=== PATIENT | female | born 1945 | race Caucasian/White ===

== ENCOUNTER → 2016-12-25 | Outpatient (CLI) | payer MEDICARE, BC ==
[~2016-12-25] MED LIST: CALCIUM; OXYC-12
--- NOTE | 2016-12-26 12:54 | Diagnostic Imaging Report ---
Thyroid scan and uptake. TECHNIQUE: After the oral administration of 201 ?Ci of I-123 capsule, 4-hour and 24-hour uptake is measured and plantar images over the thyroid gland obtained. INDICATION: Multiple thyroid nodules FINDINGS: Thyroid uptake at 4 hours is 20 %, and at 24 hours is 47 %. There is decreased uptake in the lower pole of the right thyroid lobe which corresponds to a dominant nodule measuring 3.2 cm seen on ultrasound. IMPRESSION: 1. Mild hyperthyroidism. 2. Cold nodule in the lower right thyroid lobe corresponding to a 3.2-cm mass seen on ultrasound of 10/26/2016. Tissue diagnosis is suggested. Report was faxed to office of Dr. Eric Mak @ 12:53 PM/nury. Dictated by: Dictated on workstation # [id number]
== END ==
LOC: CARD 10:51
PROVIDERS: ATTEND Otolaryngology Otolaryngology/Facial Plastic Surgery
DX: E04.1 Nontoxic single thyroid nodule (principal); E05.90 Thyrotoxicosis, unspecified without thyrotoxic crisis or storm
CPT/HCPCS: 78014

== ENCOUNTER → 2017-01-25 | Outpatient (CLI) | payer MEDICARE, BC ==
[~2017-01-25] VITALS: Ht 157.5 cm; Wt 63.5 kg
[2017-01-25 11:12] VITALS: BP 138/87
[2017-01-25 11:30] VITALS: BP 128/67
--- NOTE | 2017-01-25 11:38 | Progress Note-Pre Operative ---
Pre-Operative Progress Note H&P Reviewed The H&P was reviewed, patient examined and no changes noted. Date H&P Reviewed: Jan 25, 2017 Time H&P Reviewed: 11:15 Pre-Operative Diagnosis: Right Thyroid Nodule MISHEL DAVIES MD Jan 25, 2017 11:38 am
--- NOTE | 2017-01-25 11:41 | Progress Note-Post Operative ---
Post-Operative Progess Note Surgeon (s)/Single Pass Soil Stabilizer Operator (s) Surgeon MISHEL DAVIES MD Single Pass Soil Stabilizer Operator: n/a Pre-Operative Diagnosis Right Thyroid Nodule Post-Operative Diagnosis same Post-Op Procedure Note Date of Procedure: Jan 25, 2017 Name of Procedure Performed: US Guided FNA of Right Thyroid Nodule Description of the Procedure: n/a Findings of the Procedure n/a Anesthesia Type local Estimated blood loss (mL): minimal Packing: n/a Specimen(s) collected/removed slides and cytology to pathology MISHEL DAVIES MD Jan 25, 2017 11:41 am
--- NOTE | 2017-01-25 11:49 | Diagnostic Imaging Report ---
EXAMINATION: Dedicated thyroid ultrasound performed with ultrasound guidance provided for FNA performed by Dr. Mak. Indication: Thyroid nodule FINDINGS: Ultrasound images demonstrate a right thyroid nodule. IMPRESSION: Ultrasound guidance provided for right thyroid nodule FNA. Dictated by: Dictated on workstation # [id number]
== END ==
LOC: RAD 11:06
PROVIDERS: ATTEND Otolaryngology Otolaryngology/Facial Plastic Surgery
DX: E04.1 Nontoxic single thyroid nodule (principal)
CPT/HCPCS: 76942; 88305

== ENCOUNTER → 2017-06-20 | Outpatient (CLI) | payer MEDICARE, BC ==
--- NOTE | 2017-06-20 18:10 | Diagnostic Imaging Report ---
PROCEDURE: US Thyroid. TECHNIQUE: Multiple real-time grayscale images were obtained of the thyroid in various projections. INDICATION: Thyroid nodule. FINDINGS: The thyroid ultrasound exam performed on 10/26/2016 noted multiple nodules involving both lobes of the thyroid. This included a 3.2 x 1.6 x 2.6 cm complex nodule in the inferior pole of the right lobe. The I-123 thyroid uptake exam of 12/26/2016 indicated this was a cold nodule, however. The patient subsequently underwent an ultrasound-guided biopsy of the nodule on 01/25/2017. The results of the biopsy are not known to me. On this study, the multiple nodules within the thyroid gland seen previously are again evident and do not appear to have changed significantly. Specifically, the nodule in the inferior portion of the right lobe seems stable and measures 3.2 x 2.6 x 1.6 cm. The thyroid gland itself is prominent with the right lobe measuring 5.2 x 2.2 x 2.3 cm and the left lobe is estimated to be 4 x 1.5 x 1.3 cm (normal gland size 4-5 x 2 x 2 cm or less). IMPRESSION: When compared to the previous study, there does not appear to have been any significant change in the appearance of the thyroid gland. The gland is prominent, and there are multiple nodules involving both lobes. This appearance does suggest a multinodular goiter. Correlation with the patient's surgical biopsy results regarding the nodule in the inferior pole of the right lobe would be recommended. Dictated by: Dictated on workstation # [id number]
== END ==
LOC: RAD 12:51
PROVIDERS: ATTEND Otolaryngology Otolaryngology/Facial Plastic Surgery
DX: E04.2 Nontoxic multinodular goiter (principal)
CPT/HCPCS: 76536

== ENCOUNTER → 2018-04-03 | Outpatient (CLI) | payer MEDICARE, BC ==
--- NOTE | 2018-04-03 15:50 | Diagnostic Imaging Report ---
PROCEDURE: US Thyroid. TECHNIQUE: Multiple real-time grayscale images were obtained of the thyroid in various projections. INDICATION: Right thyroid nodule. The previous thyroid ultrasound exam on 10/26/2016 noted multiple bilateral thyroid nodules including a 3.2 x 1.6 x 2.6 cm complex nodule in the inferior pole of the right lobe of the thyroid. The I-123 nuclear medicine thyroid scan performed on 12/26/2016 indicated that this is a cold nodule. The patient did undergo an ultrasound-guided biopsy of this lesion on 01/25/2017. The results of that biopsy however are not known to me. The subsequent thyroid ultrasound exam of 06/20/2017 suggests that the nodule in the inferior pole of the right lobe of the thyroid was stable. The other nodules in both lobes seen previously also appeared unchanged. On this study, the overall appearance of the thyroid gland does not appear to have changed significantly. The nodule in the inferior pole of the right lobe seen in the previous study now measures 3.2 x 1.5 x 2.3 cm. The other nodules in both lobes are essentially no different with the exception of the 1.7 x 1.9 x 1.1 cm nodule in the isthmus. That nodule now measures 2.0 x 1.9 x 1.1 cm. I still suspect that this is most likely a benign process. The right lobe of the thyroid measures 5.8 x 2.3 x 2.2 cm. The left lobe is estimated to be 5.3 x 1.8 x 1.4 cm (normal gland size 4-5 x 2 x 2 cm or less). IMPRESSION: 1. The thyroid gland is enlarged and there are multiple nodules in both lobes. This appearance is most likely due to a multinodular goiter. 2. The complex solid nodule in the inferior pole of the right lobe seen in the previous studies appears stable as well. Correlation with the patient's biopsy results would be recommended. 3. If further evaluation is desired, a six-month followup ultrasound exam should be obtained. Dictated by: Dictated on workstation # [id number]
== END ==
LOC: RAD 11:08
PROVIDERS: ATTEND Otolaryngology Otolaryngology/Facial Plastic Surgery
DX: E04.2 Nontoxic multinodular goiter (principal)
CPT/HCPCS: 76536

== ENCOUNTER → 2018-09-11 | Outpatient (CLI) | payer MEDICARE, BC ==
--- NOTE | 2018-09-11 12:36 | Diagnostic Imaging Report ---
INDICATION: Routine screening. Comparison is made with prior mammogram from 09/03/2017 and 08/16/2016. 2-D and 3-D bilateral screening mammography was performed with CAD. Both breasts are heterogeneously dense, limiting the sensitivity of mammography. The parenchymal pattern is stable. No mass or malignant-appearing micro-calcifications are seen. The axilla are unremarkable. IMPRESSION: BI-RADS category one No mammographic features suspicious for malignancy are identified. ACR BI-RADS Category 1: Negative. Result letter will be mailed to the patient. Note: At least 10% of breast cancer is not imaged by mammography. Dictated by: Dictated on workstation # [id number]
== END ==
LOC: RAD 10:19
PROVIDERS: ATTEND Obstetrics & Gynecology
DX: Z12.31 Encounter for screening mammogram for malignant neoplasm of breast (principal)
CPT/HCPCS: 77067

== ENCOUNTER → 2019-03-30 | Outpatient (CLI) | payer MEDICARE, BC ==
--- NOTE | 2019-03-30 14:22 | Diagnostic Imaging Report ---
PROCEDURE: US Thyroid. TECHNIQUE: Multiple real-time grayscale images were obtained of the thyroid in various projections. INDICATION: Thyroid nodule. COMPARISON: Correlation is made with thyroid ultrasound from 04/03/2018. FINDINGS: Right lobe of the thyroid measures 5.0 x 1.9 x 2.0 cm and the left lobe measures 5.1 x 2.2 x 1.4 cm. Multiple bilateral thyroid masses are again noted. Dominant mass in the lower pole right lobe measures 3.3 x 1.9 x 1.9 cm. This is similar to prior exam. Nodule in the upper pole measures 1.1 x 0.9 1.0 cm, stable. Nodule in the isthmus measures 2.1 x 1.4 x 2.0 cm compared with 2.0 x 1.1 x 1.9 cm. Left lower pole nodule is 1.4 x 1.1 x 1.3 cm, slightly smaller than prior exam. Upper pole left lobe nodule measures 1.4 x 0.9 x 1.0 cm, stable. IMPRESSION: Overall stable multinodular thyroid when compared with examination one year earlier. Dictated by: Dictated on workstation # [id number]
== END ==
LOC: RAD 12:10
PROVIDERS: ATTEND Otolaryngology Otolaryngology/Facial Plastic Surgery
DX: E04.2 Nontoxic multinodular goiter (principal)
CPT/HCPCS: 76536

== ENCOUNTER → 2019-11-30 | Outpatient (CLI) | payer MEDICARE, BC ==
--- NOTE | 2019-11-30 12:13 | Diagnostic Imaging Report ---
INDICATION: Routine screening. COMPARISON: 09/11/2018 and 09/03/2017. TECHNIQUE: 2D and 3D bilateral screening mammography was performed with CAD. FINDINGS: Both breasts are heterogeneously dense, limiting the sensitivity of mammography. The parenchymal pattern is stable. No mass or malignant appearing microcalcifications are seen. There are benign calcifications in the left breast. The axillae are unremarkable. IMPRESSION: No mammographic features suspicious for malignancy are identified. ACR BI-RADS Category 2: Benign findings. Result letter will be mailed to the patient. Note: At least 10% of breast cancer is not imaged by mammography. Dictated by: Dictated on workstation # [id number]
== END ==
LOC: RAD 09:10
PROVIDERS: ATTEND Obstetrics & Gynecology
DX: Z12.31 Encounter for screening mammogram for malignant neoplasm of breast (principal)
CPT/HCPCS: 77067

== ENCOUNTER → 2020-05-25 | Outpatient (CLI) | payer MEDICARE, BC ==
--- NOTE | 2020-05-25 10:34 | Diagnostic Imaging Report ---
PROCEDURE: US Thyroid. TECHNIQUE: Multiple Real-time grayscale images were obtained of the thyroid in various projections. INDICATION: Bilateral thyroid nodules. FINDINGS: The previous thyroid ultrasound exam of 03/30/2019 revealed multiple nodules in both lobes of the thyroid. These findings did seem similar to the prior exam of 04/03/2018. On this exam, there are again nodules in both lobes of the thyroid. The largest nodule in the right lobe is along the inferior pole and measures 3.5 x 1.5 x 2.6 cm. On the prior exam, this nodule measured 3.3 x 1.9 x 1.9 cm. The complex nodule in the isthmus seen on the prior exam measuring 2.1 x 1.4 x 2.0 cm is again visualized and is now estimated to be 2.5 x 1.4 x 2.5 cm. The largest nodule in the left lobe located in the inferior pole now measures 2.0 x 1.2 x 1.7 cm as opposed to 1.4 x 1.1 x 1.3 cm previously. No new nodule has developed. The thyroid gland itself remains enlarged with the right lobe measuring 5.6 x 1.6 x 2.2 cm while the left lobe is estimated at 5.2 x 1.5 x 1.4 cm (normal gland size 4-5 x 2.2 cm or less). IMPRESSION: The thyroid gland is enlarged and there are multiple nodules in both lobes. The nodules in the isthmus and in the inferior pole of the left lobe do measure somewhat greater than on the prior exam. I suspect that these nodules are benign but I would recommend that a short-term (6 month) followup thyroid ultrasound exam be obtained for further evaluation. Dictated by: Dictated on workstation # [id number]
== END ==
LOC: RAD 08:22
PROVIDERS: ATTEND Otolaryngology Otolaryngology/Facial Plastic Surgery
DX: E04.2 Nontoxic multinodular goiter (principal); E07.89 Other specified disorders of thyroid
CPT/HCPCS: 76536

== ENCOUNTER → 2021-04-18 | Outpatient (CLI) | payer MEDICARE, BC ==
--- NOTE | 2021-04-18 13:41 | Diagnostic Imaging Report ---
INDICATION: Right hip pain COMPARISON: None. FINDINGS: 2 views of the right hip were obtained and show no fractures, dislocations, or other acute bony abnormalities. Joint spaces are well maintained throughout. The soft tissues appear unremarkable. No radiopaque foreign bodies are identified. IMPRESSION: Unremarkable radiographic exam of the right hip. Dictated by: Dictated on workstation # [id number]
== END ==
LOC: RAD 12:58
PROVIDERS: ATTEND Internal Medicine
DX: M25.551 Pain in right hip (principal)
CPT/HCPCS: 73502

== ENCOUNTER → 2021-05-09 | Outpatient (CLI) | payer MEDICARE, BC ==
--- NOTE | 2021-05-09 14:05 | Diagnostic Imaging Report ---
INDICATION: Postmenopausal state. COMPARISON: 06/19/2004. FINDINGS: AP Spine L1-L4: [BMD (g/cm2): 0.858] [T-Score: -2.8] [Z-Score: -0.9] [BMD Previous: 0.954] [BMD % Change: -10.1] LT Hip Neck: [BMD (g/cm2): 0.676] [T-Score: -2.6] [Z-Score: -0.6] LT Hip Total: [BMD (g/cm2):0.714] [T-Score:-2.3] [Z-Score: -0.5] [BMD Previous: 0.731] [BMD % Change: -2.3] RT Hip Neck: [BMD (g/cm2):0.644] [T-Score:-2.8] [Z-Score:-0.8] RT Hip Total: [BMD (g/cm2):0.667] [T-score:-2.7] [Z-Score:-0.9] [BMD Previous:0.709] [BMD % Change:-5.9] *Indicates significant change from prior examination based on 95% confidence level. World Health Organization criteria for BMD interpretation classify patients as Normal (T-score at or above -1.0), Osteopenic (T-score between -1.0 and -2.5) or Osteoporotic (T-score at or below -2.5). LIMITATIONS AND MODIFICATION: None. FRACTURE RISK (FRAX SCORE): The ten year probability of (%): Major Osteoporotic Fracture: [27.9] Hip Fracture: [9.8] IMPRESSION: 1. Osteoporosis. 2. No significant change in bone mineral density since prior examination. 3. See below National Osteoporosis Foundation guidelines on when to potentially initiate pharmacologic therapy. Based on the National Osteoporosis Foundation Guidelines, pharmacologic treatment should be initiated in any of the following, unless clinical conditions suggest otherwise: * Any patient with prior fragility fracture of the hip or vertebrae. A spine fracture indicates 5X risk for subsequent spine fracture and 2X risk for subsequent hip fracture. * Osteoporosis (T-score <-2.5). * Postmenopausal women and men age 50 and older with low bone mass/osteopenia (T-score between -1.0 and -2.5) by DXA and 10-year major osteoporotic fracture greater than 20% or a 10-year probability of hip fracture greater than 3%. These fracture risks are supplied above in the FRAX score, if applicable. * Clinician judgement and/or patient preferences may indicate treatment for people with 10-year fracture probabilities above or below these levels. Dictated by: Dictated on workstation # [id number]
== END ==
LOC: RAD 12:07
PROVIDERS: ATTEND Internal Medicine
DX: M81.0 Age-related osteoporosis without current pathological fracture (principal); Z78.0 Asymptomatic menopausal state
CPT/HCPCS: 77080

== ENCOUNTER → 2021-05-09 | Outpatient (CLI) | payer MEDICARE, BC ==
--- NOTE | 2021-05-09 14:23 | Diagnostic Imaging Report ---
PROCEDURE: US Thyroid. TECHNIQUE: Multiple Real-time grayscale images were obtained of the thyroid in various projections. INDICATION: Multinodular goiter. COMPARISON: 05/25/2020 thyroid ultrasound. FINDINGS: The right lobe measures 5.6 x 2.3 x 1.7 cm. The largest nodule along the inferior pole measures 3.5 x 1.5 x 2.4 cm. This is well-circumscribed with a heterogeneous appearance from anechoic to predominately isoechoic. There is a hypoechoic nodule in the upper pole which is well-circumscribed measuring 1.2 x 1 x 0.7 cm. No associated calcifications are seen. The isthmus shows a single solid nodule which is heterogeneous from anechoic to hyperechoic. This measures 2.1 x 1 x 2.4 cm. The left lobe measures 5.2 x 1.5 x 1.2 cm. There are two large nodules, both of which are heterogeneous with anechoic to solid isoechoic appearance. The largest is inferior measuring 1.9 x 1.8 x 1.2 cm. One in the upper pole measures 1.7 x 1 x 0.8 cm. All nodules are wider than tall. No calcifications are seen. IMPRESSION: Multinodular appearance as described. The overall findings are relatively stable when compared with the previous year's exam. TI-RADS 3 Dictated by: Dictated on workstation # [id number]
== END ==
LOC: RAD 12:09
PROVIDERS: ATTEND Otolaryngology Otolaryngology/Facial Plastic Surgery
DX: E04.2 Nontoxic multinodular goiter (principal)
CPT/HCPCS: 76536

== ENCOUNTER → 2021-07-13 | Outpatient (CLI) | payer MEDICARE, BC ==
--- NOTE | 2021-07-13 13:25 | Diagnostic Imaging Report ---
Indication: Routine screening. Comparison is made with prior mammogram from 11/30/2019 and 09/11/2018. 2-D and 3-D bilateral screening mammography was performed with CAD. Both breast are heterogeneously dense, limiting the sensitivity of mammography. The parenchymal pattern is stable. No mass or malignant-appearing microcalcifications are seen. Axillae are unremarkable. IMPRESSION: BI-RADS Category 1 No mammographic features suspicious for malignancy are identified. ACR BI-RADS Category 1: Negative. Result letter will be mailed to the patient. Note: At least 10% of breast cancer is not imaged by mammography. Dictated by: Dictated on workstation # [id number]
== END ==
LOC: RAD 10:15
PROVIDERS: ATTEND Obstetrics & Gynecology
DX: Z12.31 Encounter for screening mammogram for malignant neoplasm of breast (principal)
CPT/HCPCS: 77063; 77067

== ENCOUNTER 2021-09-26 05:34 | Outpatient (CLI) | payer MEDICARE, BC ==
[~2021-09-26] VITALS: Ht 157.5 cm; Wt 58.2 kg
[2021-09-26] MEDS ORDERED: GLUC-235 PO (15:22)
[2021-09-26] MEDS ORDERED: LEVO2.5S7 PO (15:26)
[2021-09-26] MEDS ORDERED: GLUC1TAB20 PO (15:27)
== END 2021-09-26 15:42 | disposition home or self-care (01) ==
LOC: PREOP 05:34
PROVIDERS: ATTEND Specialist
DX: Z01.818 Encounter for other preprocedural examination (principal)

== ENCOUNTER 2021-09-29 09:56 | Day surgery (SDC) | payer MEDICARE, BC ==
[~2021-09-29] VITALS: Ht 157.5 cm; Wt 58.2 kg
[~2021-09-29 09:56] MED LIST changes: +GLUC-235 PO; +GLUC1TAB20 PO; +LEVO2.5S7 PO
[2021-09-29] MEDS: TETRACAINE 0.5% OPHTH SOLN 4 ML BTL (SINGLE DOSE ONLY) OU PRN ×3 (10:09→10:19)
[2021-09-29 10:12] VITALS: BP 145/83
[2021-09-29] MEDS: PHENYLEPHRINE 10% OPHTH (NEO-SYN) 5 ML BTL OU SCH ×2 (10:14→10:19)
[2021-09-29] MEDS: TROPICAMIDE 1% OPH SOLN (MYDRIACYL) 15 ML BTL OP SCH ×2 (10:14→10:19)
[2021-09-29] MEDS ORDERED: LIDOCAINE PF 1% 2 ML VIAL IR PRN (10:15)
[2021-09-29] MEDS ORDERED: POVIDONE (BETADINE) OPHTH SOLN 5% 30 ML OP ONE (10:15)
[2021-09-29] MEDS ORDERED: TIMOLOL MALEATE 0.5% 5 ML (TIMOPTIC) BTL OU PRN (10:15)
[2021-09-29] MEDS ORDERED: MOXIFLOXACIN OPHTH SOLN 5 MG/ML 0.3 ML SYRINGE OP ONE (10:15)
--- NOTE | 2021-09-29 10:22 | Ophthalmologist Pre-Op Note ---
Pre-Operative Progress Note H&P Reviewed The H&P was reviewed, patient examined and no changes noted. Date H&P Reviewed: Sep 29, 2021 Time H&P Reviewed: 10:22 Pre-Op Dx Cataract, Right Eye DORIS SONG MD Sep 29, 2021 10:22
[2021-09-29] MEDS ORDERED: MIDAZOLAM 2 MG/2 ML (VERSED) VIAL ONE (10:30)
--- NOTE | 2021-09-29 10:44 | Ophthalmology Operative Report ---
Cataract removal/placement IOL PREOPERATIVE DIAGNOSIS: Cataract Right Eye POSTOPERATIVE DIAGNOSIS: Cataract Right Eye PROCEDURE: Cataract removal and placement of posterior chamber implant, right eye SURGEON: Josef Song ANESTHESIA: Topical with sedation COMPLICATIONS: None ESTIMATED BLOOD LOSS: Minimal DESCRIPTION OF PROCEDURE: After proper informed consent was obtained, the patient, a 76 female, was taken to the Operating Room and the right eye was anesthetized with tetracaine. The right eye was then prepped and draped in the usual manner. A wire lid speculum was placed. A paracentesis was made at the left hand position. Preservative free lidocaine was injected into the anterior chamber followed by viscoelastic. A clear corneal incision was made in the temporal position. A capsulorrhexis was preformed and the central nuclear and cortical material were removed. The posterior capsule was polished and Branden 19.0 AU00T0 IOL was placed into the capsular bag. The residual viscoelastic was aspirated and balanced saline solution was injected into the anterior chamber. Moxifloxacin was injected into the anterior chamber. The wound was checked and found to be water tight. The patient tolerated the procedure well without complications. JOSEF SONG MD Sep 29, 2021 10:44
[2021-09-29 10:52] VITALS: BP 126/66
[2021-09-29] MEDS ORDERED: acetaZOLAMIDE ER 500 MG CAP (DIAMOX SEQUELS) PO ONE (11:30)
--- NOTE | 2021-09-29 12:40 | Anesthesia-General Post-Op ---
MAC Patient Condition Mental Status/LOC: Same as Preop Cardiovascular: Satisfactory Nausea/Vomiting: Absent Respiratory: Satisfactory Pain: Controlled Complications: Absent Post Op Complications Complications None Follow Up Care/Instructions Patient Instructions None needed. Anesthesiology Discharge Order Discharge Order Patient is doing well, no complaints, stable vital signs, no apparent adverse anesthesia problems. No complications reported per nursing. RAFAT RODRIGUEZ CRNA Sep 29, 2021 12:40
== END 2021-09-29 10:56 ==
LOC: SDC 09:56
PROVIDERS: ATTEND Specialist
DX: H25.11 Age-related nuclear cataract, right eye (principal); J45.909 Unspecified asthma, uncomplicated; E03.9 Hypothyroidism, unspecified; M81.0 Age-related osteoporosis without current pathological fracture; Z90.710 Acquired absence of both cervix and uterus; Z85.828 Personal history of other malignant neoplasm of skin; Z80.9 Family history of malignant neoplasm, unspecified
CPT/HCPCS: 66984; V2632

== ENCOUNTER 2021-10-13 09:59 | Day surgery (SDC) | payer MEDICARE, BC ==
[~2021-10-13] VITALS: Ht 157.5 cm; Wt 58.2 kg
[2021-10-13] MEDS ORDERED: POVIDONE (BETADINE) OPHTH SOLN 5% 30 ML OP ONE (10:00)
[2021-10-13] MEDS ORDERED: MOXIFLOXACIN OPHTH SOLN 5 MG/ML 0.3 ML SYRINGE OP ONE (10:00)
[2021-10-13] MEDS ORDERED: TIMOLOL MALEATE 0.5% 5 ML (TIMOPTIC) BTL OU PRN (10:00)
[2021-10-13] MEDS ORDERED: LIDOCAINE PF 1% 2 ML VIAL IR PRN (10:00)
[2021-10-13] MEDS: TETRACAINE 0.5% OPHTH SOLN 4 ML BTL (SINGLE DOSE ONLY) OU PRN ×4 (10:08→10:25)
[2021-10-13] MEDS: PHENYLEPHRINE 10% OPHTH (NEO-SYN) 5 ML BTL OU SCH ×3 (10:15→10:25)
[2021-10-13] MEDS: TROPICAMIDE 1% OPH SOLN (MYDRIACYL) 15 ML BTL OP SCH ×3 (10:15→10:25)
[2021-10-13 10:18] VITALS: BP 164/74
[2021-10-13] MEDS ORDERED: MIDAZOLAM 2 MG/2 ML (VERSED) VIAL ONE (10:51)
[2021-10-13] MEDS ORDERED: acetaZOLAMIDE ER 500 MG CAP (DIAMOX SEQUELS) PO ONE (11:00)
--- NOTE | 2021-10-13 11:05 | Ophthalmologist Pre-Op Note ---
Pre-Operative Progress Note H&P Reviewed The H&P was reviewed, patient examined and no changes noted. Date H&P Reviewed: Oct 13, 2021 Time H&P Reviewed: 11:05 Pre-Op Dx Cataract, Left Eye DORIS SONG MD Oct 13, 2021 11:05
--- NOTE | 2021-10-13 11:31 | Ophthalmology Operative Report ---
Cataract removal/placement IOL PREOPERATIVE DIAGNOSIS: Cataract Left Eye POSTOPERATIVE DIAGNOSIS: Cataract Left Eye PROCEDURE: Cataract removal and placement of posterior chamber implant, left eye SURGEON: Josef Song ANESTHESIA: Topical with sedation COMPLICATIONS: None ESTIMATED BLOOD LOSS: Minimal DESCRIPTION OF PROCEDURE: After proper informed consent was obtained, the patient, a 76 female, was taken to the Operating Room and the left eye was anesthetized with tetracaine. The left eye was then prepped and draped in the usual manner. A wire lid speculum was placed. A paracentesis was made at the left hand position. Preservative free lidocaine was injected into the anterior chamber followed by viscoelastic. A clear corneal incision was made in the temporal position. A capsulorrhexis was preformed and the central nuclear and cortical material were removed. The posterior capsule was polished and an Branden 18.5 AU00T0 was placed into the capsular bag. The residual viscoelastic was aspirated and balanced saline solution was injected into the anterior chamber. Moxifloxacin was injected into the anterior chamber. The wound was checked and found to be water tight. The patient tolerated the procedure well without complications. JOSEF SONG MD Oct 13, 2021 11:31
[2021-10-13 11:35] VITALS: BP 142/63
--- NOTE | 2021-10-13 13:13 | Anesthesia-General Post-Op ---
MAC Patient Condition Mental Status/LOC: Same as Preop Cardiovascular: Satisfactory Nausea/Vomiting: Absent Respiratory: Satisfactory Pain: Controlled Complications: Absent Post Op Complications Complications None Follow Up Care/Instructions Patient Instructions None needed. Anesthesiology Discharge Order Discharge Order Patient is doing well, no complaints, stable vital signs, no apparent adverse anesthesia problems. No complications reported per nursing. INGE KRAUSE CRNA Oct 13, 2021 13:12
== END 2021-10-13 11:37 ==
LOC: SDC 09:59
PROVIDERS: ATTEND Specialist
DX: H25.12 Age-related nuclear cataract, left eye (principal); J45.909 Unspecified asthma, uncomplicated; E03.9 Hypothyroidism, unspecified
CPT/HCPCS: 66984; V2632

== ENCOUNTER → 2022-05-09 | Outpatient (CLI) | payer MEDICARE, BC ==
[~2022-05-09] MED LIST changes: -GLUC1TAB20 PO; +GLUC1TAB21 PO
--- NOTE | 2022-05-09 14:20 | Diagnostic Imaging Report ---
PROCEDURE: US Thyroid. TECHNIQUE: Multiple real-time grayscale images were obtained of the thyroid in various projections. INDICATION: Multinodular goiter, follow-up. COMPARISON: Correlation is made with prior thyroid ultrasound from 05/09/2021. FINDINGS: Right lobe of the thyroid measures 5.3 x 1.9 x 2.1 cm, and the left lobe measures 5.3 x 1.7 x 1.4 cm. Isthmus is 5 mm in thickness. Bilateral thyroid nodules are again noted. Mixed solid and cystic dominant nodule in the lower pole of the right lobe measures 3.9 x 1.7 x 3.1 cm compared with 3.5 x 1.5 x 2.4 cm. The solid nodule in the upper pole of the right lobe measures 1.2 x 0.8 x 1.1 cm, stable. Solid isoechoic nodule in the upper pole of the left lobe measures 1.6 x 0.8 x 0.9 cm, stable. Dominant nodule in the lower pole of the left lobe measures 3.0 x 1.4 x 2.2 cm. This also appears similar to prior exam. Isthmus nodule measures 2.7 x 1.4 x 2.4 cm, similar to prior. No new masses are seen. IMPRESSION: Multinodular thyroid with multiple bilateral and isthmic solid nodules. The dominant nodule in the lower pole of the right lobe does show some increase in size in transverse dimension when compared with prior exam. Consideration could be given to performance of fine-needle aspiration. All other nodules appear to be fairly stable. Dictated by: Dictated on workstation # [id number]
== END ==
LOC: RAD 10:11
PROVIDERS: ATTEND Otolaryngology Otolaryngology/Facial Plastic Surgery
DX: E04.2 Nontoxic multinodular goiter (principal)
CPT/HCPCS: 76536

== ENCOUNTER → 2022-07-16 | Outpatient (CLI) | payer MEDICARE, BC ==
--- NOTE | 2022-07-16 14:30 | Diagnostic Imaging Report ---
INDICATION: Routine screening. Comparison is made with prior mammogram 07/13/2021 and 11/30/2019. 2-D and 3-D bilateral screening mammography was performed with CAD. Both breasts are heterogeneously dense, limiting the sensitivity of mammography. The parenchymal pattern is stable. No mass or malignant-appearing microcalcifications are seen. Axillae are unremarkable. IMPRESSION: No mammographic features suspicious for malignancy are identified. ACR BI-RADS Category 1: Negative. Result letter will be mailed to the patient. Note: At least 10% of breast cancer is not imaged by mammography. BI-RADS Category 1 Dictated by: Dictated on workstation # [id number]
== END ==
LOC: RAD 10:49
PROVIDERS: ATTEND Internal Medicine
DX: Z12.31 Encounter for screening mammogram for malignant neoplasm of breast (principal)
CPT/HCPCS: 77063; 77067

== ENCOUNTER → 2022-12-11 | Outpatient (CLI) | payer MEDICARE, BC ==
--- NOTE | 2022-12-11 17:48 | Diagnostic Imaging Report ---
PROCEDURE: US Thyroid. TECHNIQUE: Multiple real-time grayscale images were obtained of the thyroid in various projections. INDICATION: Multinodular goiter. COMPARISON: 05/09/2022. FINDINGS: Right thyroid lobe: Size (cm): 5.3 x 1.9 x 1.9 Echotexture: Heterogeneous. Vascularity: Normal Nodules: In the superior right thyroid, there is a heterogeneous solid, mostly hypoechoic nodule measuring 1.2 cm, stable since the prior study. In the inferior right thyroid, there is a heterogeneous, mostly isoechoic circumscribed nodule measuring 3.8 cm, stable since the prior study. Isthmus: Size (cm): 0.5 Nodules: In the isthmus, there is an isoechoic solid nodule measuring 2.6 cm, compared to 2.7 cm previously. Left thyroid lobe: Size (cm): 5.0 x 1.9 x 1.5 Echotexture: Heterogeneous. Vascularity: Normal Nodules: In the superior left thyroid, there is a 1.5 cm nodule which is mildly hypoechoic and solid, previously 1.6 cm. In the inferior left thyroid, there is a 3.3 cm heterogeneous isoechoic nodule which is solid and previously 3.0 cm. IMPRESSION: 1. Multinodular thyroid, with multiple nodules which qualify for FNA. A right thyroid nodule may have been previously sampled. These nodules appear stable since April 2022, and mildly increased in size since 2018. Dictated by: Dictated on workstation # [id number]
== END ==
LOC: RAD 11:25
PROVIDERS: ATTEND Otolaryngology Otolaryngology/Facial Plastic Surgery
DX: E04.2 Nontoxic multinodular goiter (principal)
CPT/HCPCS: 76536

== ENCOUNTER → 2023-07-17 | Outpatient (CLI) | payer MEDICARE, BC ==
--- NOTE | 2023-07-17 12:25 | Diagnostic Imaging Report ---
INDICATION: Routine screening. COMPARISON: 07/16/2022 and 07/13/2021. TECHNIQUE: 2D and 3D bilateral screening mammography was performed with CAD. FINDINGS: Both breasts remain heterogeneously dense, limiting the sensitivity of mammography. The parenchymal pattern is stable. No mass or malignant-appearing microcalcifications are seen. The axillae are unremarkable. IMPRESSION: No mammographic features suspicious for malignancy are identified. ACR BI-RADS Category 1: Negative. Result letter will be mailed to the patient. Note: At least 10% of breast cancer is not imaged by mammography. Dictated by: Dictated on workstation # [id number]
== END ==
LOC: RAD 10:00
PROVIDERS: ATTEND Internal Medicine
DX: Z12.31 Encounter for screening mammogram for malignant neoplasm of breast (principal)
CPT/HCPCS: 77063; 77067

== ENCOUNTER → 2023-09-03 | Outpatient (CLI) | payer MEDICARE, BC ==
--- NOTE | 2023-09-03 18:40 | Diagnostic Imaging Report ---
PROCEDURE: US Thyroid. TECHNIQUE: Multiple real-time grayscale images were obtained of the thyroid in various projections. INDICATION: Follow-up thyroid nodules. 12/11/2022. COMPARISON: 12/11/2022. FINDINGS: Both thyroid lobes demonstrate smooth and homogenous background echotexture. Color flow Doppler demonstrates normal and symmetric vascularity bilaterally. The right lobe measures 5.4 cm in length, 1.4 cm AP, and 3.2 cm transverse. The left lobe measures 5.5 cm in length, 1.6 cm AP, and 2.7 cm transverse. The isthmus measures 2.3 cm. Multinodular thyroid is visualized with the dominant nodule in the right lobe of the thyroid measuring 4.2 x 2.8 x 1.8 cm with a mostly solid isoechoic composition. The dominant nodule in the left lobe of the thyroid is part-solid part-cystic and measures 3.0 x 2.7 x 2.3 cm. A mostly solid nodule is seen in the isthmus measuring 3.2 x 2.3 x 2.4 cm. IMPRESSION: 1. Essentially stable multinodular thyroid. If not previously performed, a thyroid FNA of the dominant nodule in the right lobe of the thyroid is recommended. Otherwise, continued follow-up in 12 months is recommended with thyroid ultrasound. Dictated by: Dictated on workstation # [id number]
== END ==
LOC: RAD 10:09
PROVIDERS: ATTEND Nurse Practitioner Family
DX: E04.2 Nontoxic multinodular goiter (principal)
CPT/HCPCS: 76536